=== PATIENT | male | born 1985 | race Caucasian/White ===

== ENCOUNTER 2017-09-22 07:46 | Emergency (ER) | payer BC, OTHER, SELFPAY ==
[~2017-09-22] VITALS: Ht 185.4 cm; Wt 63.6 kg
[2017-09-22 07:47] VITALS: BP 154/64
[2017-09-22] MEDS ORDERED: KETOROLAC 30 MG/1 ML ONE (08:06)
[2017-09-22] MEDS ORDERED: HYDROmorphone 2 MG/ML, 1ML ONE (08:06)
[2017-09-22] MEDS ORDERED: DIAZEPAM 5 MG TABLET ONE (08:06)
[2017-09-22] MEDS ORDERED: DIAZEPAM 5 MG TABLET PO ONE (08:30)
[2017-09-22] MEDS ORDERED: HYDROmorphone 1 MG/ML, 1ML IM ONE (08:30)
[2017-09-22] MEDS ORDERED: KETOROLAC 30 MG/1 ML IM ONE (08:30)
[2017-09-22] MEDS ORDERED: ONDANSETRON ODT 4 MG PO ONE (08:30)
== END 2017-09-22 09:09 | disposition home or self-care (01) ==
LOC: ED 09:03
DX: S39.012A Strain of muscle, fascia and tendon of lower back, initial encounter (principal); F17.200 Nicotine dependence, unspecified, uncomplicated; X58.XXXA Exposure to other specified factors, initial encounter; Y93.89 Activity, other specified; Y92.89 Other specified places as the place of occurrence of the external cause; Y99.2 Volunteer activity
CPT/HCPCS: 72110; 96372; 99284; J1170; J1885